=== PATIENT | female | born 1990 | race Caucasian/White ===

== ENCOUNTER 2018-05-27 16:32 | Emergency (ER) | payer OTHER ==
[2018-05-27 16:39] VITALS: BP 134/77; PULSE 90; TEMP 98.5; BMI 28.3
--- NOTE | 2018-05-27 16:54 | PDOC ---
History of Present Illness - General Chief Complaint: Pain Stated Complaint: ABDOMINAL PAIN Time Seen by Provider: 05/27/18 16:53 Past History - Past Medical History Allergies/Adverse Reactions: Allergies Allergy/AdvReac Type Severity Reaction Status Date / Time No Known Allergies Allergy Verified 05/27/18 16:39 Home Medications: Ambulatory Orders Ondansetron [Zofran -] 4 mg PO QID PRN #20 tablet 12/20/14 Anemia: No Asthma: No Cancer: No Cardiac Disorders: No CVA: No COPD: No CHF: No Dementia: No Diabetes: No GI Disorders: No Disorders: No HTN: No Hypercholesterolemia: No Liver Disease: No Seizures: No Thyroid Disease: No - Surgical History Abdominal Surgery: No Appendectomy: No Cardiac Surgery: No Cholecystectomy: No Lung Surgery: No Neurologic Surgery: No Orthopedic Surgery: No - Suicide/Smoking/Psychosocial Hx Smoking Status: Yes Smoking History: Never smoked Have you smoked in the past 12 months: Yes Number of Cigarettes Smoked Daily: 1 Hx Alcohol Use: No Drug/Substance Use Hx: No Substance Use Type: None Hx Substance Use Treatment: No *Physical Exam - Vital Signs Last Vital Signs Temp Pulse Resp BP Pulse Ox 98.5 F 90 18 134/77 99 05/27/18 16:35 05/27/18 16:35 05/27/18 16:35 05/27/18 16:35 05/27/18 16:35 *DC/Admit/Observation/Transfer - Referrals Referrals: Levy Licea [Primary Care Provider] - - Patient Instructions - Post Discharge Activity
--- NOTE | 2018-05-27 16:54 | PDOC ---
History of Present Illness - General Chief Complaint: Pain Stated Complaint: ABDOMINAL PAIN Time Seen by Provider: 05/27/18 16:53 History Source: Patient Exam Limitations: No Limitations - History of Present Illness Initial Comments: 05/27/18 16:55 27 year old woman A1 who presents with 2 days of thick vaginal discharge, dysparenia lower pelvic cramping and vulvar itching and burning after unprotected sexual intercourse with a new partner. The patient denies any fevers , nausea, vomiting, vaginal or vulvar lesions or rashes. The patient denies any burning with yurination, blood in the urine n/v/d/c. She has no other complaints at [facility] nad has not used anything for pain yet. She reports that her menses are normally very regular and came on 05/21/18 this month when it should have come on 06/02/18. LNMP: 05/21/18 Past History - Past Medical History Allergies/Adverse Reactions: Allergies Allergy/AdvReac Type Severity Reaction Status Date / Time No Known Allergies Allergy Verified 05/27/18 16:39 Home Medications: Ambulatory Orders NK [No Known Home Medication] 05/27/18 Anemia: No Asthma: No Cancer: No Cardiac Disorders: No CVA: No COPD: No CHF: No Dementia: No Diabetes: No GI Disorders: No Disorders: No HTN: No Hypercholesterolemia: No Liver Disease: No Seizures: No Thyroid Disease: No - Surgical History Abdominal Surgery: No Appendectomy: No Cardiac Surgery: No Cholecystectomy: No Lung Surgery: No Neurologic Surgery: No Orthopedic Surgery: No - Suicide/Smoking/Psychosocial Hx Smoking Status: Yes Smoking History: Never smoked Have you smoked in the past 12 months: Yes Number of Cigarettes Smoked Daily: 1 Hx Alcohol Use: No Drug/Substance Use Hx: No Substance Use Type: None Hx Substance Use Treatment: No Review of Systems - Review of Systems Able to Perform ROS?: Yes Comments:: 05/27/18 17:29 GENERAL/CONSTITUTIONAL: No fever or chills. No weakness. HEAD, EYES, EARS, NOSE AND THROAT: No change in vision. No ear pain or discharge. No sore throat. CARDIOVASCULAR: No chest pain or shortness of breath RESPIRATORY: No cough, wheezing, or hemoptysis. GASTROINTESTINAL: No nausea, vomiting, diarrhea or constipation. GENITOURINARY: No dysuria, frequency, or change in urination. MUSCULOSKELETAL: No joint or muscle swelling or pain. No neck or back pain. SKIN: No rash NEUROLOGIC: No headache, vertigo, loss of consciousness, or change in strength/ sensation. ENDOCRINE: No increased thirst. No abnormal weight change HEMATOLOGIC/LYMPHATIC: No anemia, easy bleeding, or history of blood clots. ALLERGIC/IMMUNOLOGIC: No hives or skin allergy. Is the patient limited Montserratian proficient: No *Physical Exam - Vital Signs Last Vital Signs Temp Pulse Resp BP Pulse Ox 98.5 F 90 18 134/77 99 05/27/18 16:35 05/27/18 16:35 05/27/18 16:35 05/27/18 16:35 05/27/18 16:35 - Physical Exam Comments: 05/27/18 17:27 GENERAL: Awake, alert, and fully oriented, in no acute distress HEAD: No signs of trauma, normocephalic, atraumatic EYES: EOMI, sclera anicteric, conjunctiva clear ENT: oropharynx clear without exudates. Moist mucosa NECK: Normal ROM, supple LUNGS: No distress, speaks full sentences, clear to auscultation bilaterally HEART: Regular rate and rhythm, normal S1 and S2, no murmurs, rubs or gallops, peripheral pulses normal and equal bilaterally. ABDOMEN: Soft, nontender, normoactive bowel sounds. No guarding, no rebound. No masses EXTREMITIES : Normal inspection, Normal range of motion, no edema. No clubbing or cyanosis. NEUROLOGICAL: Cranial nerves II through XII grossly intact. Normal speech, no focal sensorimotor deficits SKIN: Warm, Dry, normal turgor, no rashes or lesions noted PELVIC: thick white "cottage cheese like" vaginal discharge, no cervical motion tenderness, closed cervical os, no vulvar or vaginal lesions. Medical Decision Making - Medical Decision Making 05/27/18 17:27 27 year old woman who presents with 2 days of thick vaginal discharge, dysparenia lower pelvic cramping and vulvar itching and burning after unprotected sexual intercourse with a new partner. The patient denies any fevers , nausea, vomiting, vaginal or vulvar lesions or rashes. The patient denies any burning with yurination, blood in the urine n/v/d/c. She has no other complaints at [facility] nad has not used anything for pain yet. She reports that her menses are normally very regular and came on 05/21/18 this month when it should have come on 06/02/18. ED Course: consider yeast infection vs G/C vs Uti ua, ucx, upreg, urine GC will dose difulcan urine results unremarkable patient stable for discharge. 05/27/18 18:40 *DC/Admit/Observation/Transfer Diagnosis at time of Disposition: Candidiasis - Discharge Dispostion Disposition: HOME Condition at time of disposition: Stable Decision to Admit order: No - Referrals Referrals: Levy Licea [Primary Care Provider] - - Patient Instructions Printed Discharge Instructions: DI for Vaginal Yeast Infection Additional Instructions: You were seen in the ED for complaints of vaginal discharge and pelvic cramping. In the ED you were evaluated with labwork Your results were unremarkable and you will receive a call back with any pending labs. There does not appear to be an acute need for immediate hospitalization. You are advised to follow up with your Primary Care Physician within 1 week. Return to the ED immediately if you experience worsening pelvic pain or cramping , fevers, vulvar/vaginal rashes or lesions, nausea or vomiting. - Post Discharge Activity
[2018-05-27] MEDS ORDERED: FLUCONAZOLE 50 MG TABLET PO ONE (17:23)
[2018-05-27] MEDS ORDERED: FLUCONAZOLE 100 MG TABLET (UD) ONE (17:43)
[2018-05-27 18:22] LABS: PH,URINE 6.5 (5.0-8.0); URINE APPEARANCE CLEAR; URINE BILIRUBIN NEGATIVE (NEGATIVE); URINE COLOR YELLOW; URINE GLUCOSE (UA) NEGATIVE (NEGATIVE); URINE KETONE NEGATIVE (NEGATIVE); URINE LEUK ESTERASE NEGATIVE (NEGATIVE); URINE NITRITE NEGATIVE (NEGATIVE); URINE PROTEIN NEGATIVE (NEGATIVE); URINE UROBILINOGEN 0.2 mg/dL (0.2-1.0)
[2018-05-27 18:24] LABS: HCG,QUALITATIVE URINE Negative
--- NOTE | 2018-05-27 18:24 | PDOC ---
Documentation entered by Oliver Guerin SCRIBE, acting as scribe for Bonifacio Robin MD. Bonifacio Robin MD: This documentation has been prepared by the Truong bryan Daniel, SCRIBE, under my direction and personally reviewed by me in its entirety. I confirm that the documentation accurately reflects all work, treatment, procedures, and medical decision making performed by me. Attending Attestation - Resident Resident Name: Felicia Frey - ED Attending Attestation I have performed the following: I have examined & evaluated the patient, The case was reviewed & discussed with the resident, I agree w/resident's findings & plan, Exceptions are as noted - HPI HPI: 05/27/18 17:30 The patient is a 27 year old female with no past medical history here today for evaluation of thick vaginal discharge. The patient reports that she began to have vaginal discharge, dyspareunia, lower pelvic cramping, and vulvar itching and burning 2 days ago. She reports that she began having unprotected sex with a new partner recently. Patient denies headache, lightheadedness. Denies fever, chills. Denies chest pain, shortness of breath. Denies nausea, vomiting, diarrhea, abdominal pain. Denies urinary symptoms. Denies vaginal or vulvar lesions or rashes. Allergies: NKA PCP: Levy Licea LNMP: 05/21/18 - Physicial Exam PE: 05/27/18 17:42 GENERAL: Awake, alert, and fully oriented, in no acute distress HEAD: No signs of trauma EYES: PERRLA, EOMI, sclera anicteric, conjunctiva clear ENT: Auricles normal inspection, hearing grossly normal, nares patent. Moist mucosa NECK: Normal ROM, supple, no lymphadenopathy, JVD, or masses ABDOMEN: Soft, nontender. No guarding, no rebound. No masses EXTREMITIES: Normal range of motion, no edema. No clubbing or cyanosis. 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 No CMT. no adnexal tenderness or masses. NEUROLOGICAL: Cranial nerves II through XII grossly intact. Normal speech, normal gait SKIN: Warm, Dry, normal turgor, no rashes or lesions noted. - Medical Decision Making 05/27/18 17:35 A portion of this note was written by my scribe, under my supervision. Vital Signs Temp Pulse Resp BP Pulse Ox 98.5 F 90 18 134/77 99 05/27/18 16:35 05/27/18 16:35 05/27/18 16:35 05/27/18 16:35 05/27/18 16:35 27 year old female c/ no PMH p/w vaginal discharge since yesterday. The patient reported new sexual partner 2 days ago. Unprotected sex. Noticed yesterday, whitish cottage cheese discharge, vaginal itching, and mild dysuria. No abdominal pain, fevers, chills. Pelvic exam demonstrates yeast infection. Will give diflucan. Will send GC/CT, though low suspicion. UA/UC. If UA positive, treat with abx. Follow up with PMD
== END 2018-05-27 18:54 | disposition home or self-care (01) ==
LOC: JER 16:32
DX: B37.3 Candidiasis of vulva and vagina (principal)
CPT/HCPCS: 36415; 81003; 84703; 87086; 87491; 87591; 99282-25

== ENCOUNTER 2018-07-24 19:32 | Emergency (ER) | payer OTHER ==
[2018-07-24 19:59] VITALS: BMI 27.4
[2018-07-24] MEDS ORDERED: ACETAMINOPHEN 500 MG TABLET (FP) PO ONE (19:59)
--- NOTE | 2018-07-24 19:59 | PDOC ---
Rapid Medical Evaluation Time Seen by Provider: 07/24/18 19:55 Medical Evaluation: Allergies Allergy/AdvReac Type Severity Reaction Status Date / Time No Known Allergies Allergy Verified 05/27/18 16:39 07/24/18 19:56 This patient had brief in-person evaluation in triage cc: chills and shaking this afternoon abdominal pain and constipation with no nausea, vomiting or diarrhea. PE: NAD unlabored breathing +bowel sounds, non tender abdomen orders: antipyretic This patient will proceed to the Ed for further evaluation
[2018-07-24] MEDS ORDERED: ACETAMINOPHEN 325 MG TABLET (FP) ONE (20:05)
[2018-07-24] MEDS ORDERED: SODIUM CHLORIDE 2,177 ML IV ONE (20:28)
--- NOTE | 2018-07-24 20:28 | PDOC ---
History of Present Illness - General Chief Complaint: Respiratory Stated Complaint: CHILLS/ABDOMINAL PAIN Time Seen by Provider: 07/24/18 19:55 History Source: Patient Exam Limitations: No Limitations - History of Present Illness Initial Comments: 27 yo F w a hx of a recent UTI presents to the ER with dysuria, frequency, urgency, suprapubic tenderness, and flank pain. The patient states she was recently diagnosed with a UTI and given medications to treat it but she stopped taking the antibiotics early and thinks that her urinary symptoms never subsided. She said last time she was diagnosed with a UTI she only had the urinary symptoms but now she has right sided flank pain, fevers, and the chills. LMP: 07/02 PCP: Levy Licea PSH: right wrist surgery Social Hx: Drinks recreationally on weekends. Denies smoking, or other substance usage. Allergies: NKA, NKDA Past History - Past Medical History Allergies/Adverse Reactions: Allergies Allergy/AdvReac Type Severity Reaction Status Date / Time No Known Allergies Allergy Verified 05/27/18 16:39 Home Medications: Ambulatory Orders levoFLOXacin [Levaquin] 750 mg PO DAILY 7 Days #7 tab 07/24/18 Anemia: No Asthma: No Cancer: No Cardiac Disorders: No CVA: No COPD: No CHF: No Dementia: No Diabetes: No GI Disorders: No Disorders: No HTN: No Hypercholesterolemia: No Liver Disease: No Seizures: No Thyroid Disease: No - Surgical History Abdominal Surgery: No Appendectomy: No Cardiac Surgery: No Cholecystectomy: No Lung Surgery: No Neurologic Surgery: No Orthopedic Surgery: No - Suicide/Smoking/Psychosocial Hx Smoking Status: Yes Smoking History: Never smoked Have you smoked in the past 12 months: No Number of Cigarettes Smoked Daily: 1 Information on smoking cessation initiated: No Hx Alcohol Use: No Drug/Substance Use Hx: No Substance Use Type: None Hx Substance Use Treatment: No Review of Systems - Review of Systems Able to Perform ROS?: Yes Comments:: CONSTITUTIONAL: + fever, + chills, + fatigue EYES: No visual changes ENT: No ear pain, no sore throat CARDIOVASCULAR: No chest pain, no palpitations RESPIRATORY: No cough, no SOB GI: + Flank pain, No abdominal pain, no nausea, no vomiting, no constipation, no diarrhea GENITOURINARY: + dysuria, + frequency, + hematuria MUSKULOSKELETAL: + backpain, no joint pain, no myalgias SKIN: No rash NEURO: No headache *Physical Exam - Vital Signs Last Vital Signs Temp Pulse Resp BP Pulse Ox 103.0 F H 121 H 18 132/83 100 07/24/18 19:57 07/24/18 19:57 07/24/18 19:57 07/24/18 19:57 07/24/18 19:57 - Physical Exam Comments: CONSTITUTIONAL: Well-appearing; well-nourished; in no apparent distress HEAD: Normocephalic; atraumatic EYES: PERRL; EOM intact ENMT: External appears normal; normal oropharynx NECK: Supple; non-tender; no cervical lymphadenopathy CARD: Normal S1, S2; no murmurs, rubs, or gallops RESP: CTAB. No wheezes, rhonchi, or rales ABD: There is suprapubic TTP. Abdomen is soft, non-distended. no palpable organomegaly, no palpable hernias. Normal bowel sounds. EXT: Normal ROM in all four extremities; non-tender to palpation; distal pulses intact SKIN: Warm, dry, no rash NEURO: No focal neurological deficiencies. ED Treatment Course - LABORATORY CBC & Chemistry Diagram: 07/24/18 20:47 07/24/18 20:47 - Medications Given in the ED: ED Medications Discontinued Medications Generic Name Dose Route Start Last Admin Trade Name Freq PRN Reason Stop Dose Admin Acetaminophen 1,000 mg 07/24/18 19:59 07/24/18 20:08 Tylenol - PO 07/24/18 20:00 1,000 mg ONCE ONE Administration Medical Decision Making - Medical Decision Making 27 yo F w a hx of a recent UTI presents to the ER with dysuria, frequency, urgency, suprapubic tenderness, and flank pain. The patient states she was recently diagnosed with a UTI and given medications to treat it but she stopped taking the antibiotics early and thinks that her urinary symptoms never subsided. She said last time she was diagnosed with a UTI she only had the urinary symptoms but now she has right sided flank pain, fevers, and the chills. LMP: 07/02 Vital Signs Temp Pulse Resp BP Pulse Ox 103.0 F H 121 H 18 132/83 100 07/24/18 19:57 07/24/18 19:57 07/24/18 19:57 07/24/18 19:57 07/24/18 19:57 DDx IBNLT: SIRS vs Sepsis - Likely a UTI which progressed to PYLO. Lower on DD - bacteremia, PNA, meningitis, gastroenteritis Plan: Sepsis workup, labs, urine, fluids, ekg, xr, urine, cultures, Abx, re- assess. Urine shows patient has a UTI - likely pylo Will treat w Abx one dose ceftriaxone here then DC on levaquin *DC/Admit/Observation/Transfer Diagnosis at time of Disposition: UTI (lower urinary tract infection), Pyelonephritis - Discharge Dispostion Disposition: HOME Condition at time of disposition: Improved Decision to Admit order: No - Prescriptions Prescriptions: levoFLOXacin [Levaquin] 750 mg PO DAILY 7 Days #7 tab - Referrals Referrals: Levy Licea [Primary Care Provider] - - Patient Instructions Printed Discharge Instructions: Kidney Infection Additional Instructions: You came into the ER and we diagnosed you with pyelonephritis - Please see attached handout for further explanation. 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 Please make sure to pick them up and take one 750 mg pill a day for the next 7 days. We will call you when your urine culture results come back if we need to treat you with other antibiotics. Come back to the ER immediately if your pain worsens, you start vomiting or have any other new or worsening concerns. Please make sure to follow up with your PCP in the next 3 to 5 days to make sure you are getting better and being taken care of. Thank you for coming to the [facility] ER. We hope you feel better soon! Print Language: NOR[place] KOREAN - Post Discharge Activity
[2018-07-24 21:22] LABS: BASO % 0.1 % (0-2.0); EOS % 0.2 % (0-4.5); HEMATOCRIT 34.8 % (32.4-45.2); HEMOGLOBIN 11.1 GM/dL (10.7-15.3); LYMPH % 3.3 % (8-40); MCH 24.9 pg (25.7-33.7); MCHC 31.8 g/dl (32.0-36.0); MEAN CELL VOLUME 78.3 fl (80-96); MONO % 5.5 % (3.8-10.2); NEUT % 90.9 % (42.8-82.8); PLATELET COUNT 323 K/MM3 (134-434); RBC 4.44 M/mm3 (3.60-5.2); RDW 17.5 % (11.6-15.6); WHITE BLOOD COUNT 18.6 K/mm3 (4.0-10.0)
[2018-07-24 21:35] LABS: INR 0.93 (0.83-1.09)
[2018-07-24 21:38] LABS: ALBUMIN 3.8 g/dl (3.4-5.0); BILIRUBIN,TOTAL 0.6 mg/dL (0.2-1); BLOOD UREA NITROGEN 14.1 mg/dL (7-18); CALCIUM 9.1 mg/dL (8.5-10.1); CREATININE 0.7 mg/dL (0.55-1.3); POTASSIUM 4.1 mmol/L (3.5-5.1); TOT PROT 7.2 g/dl (6.4-8.2)
[2018-07-24 21:51] LABS: EPI CELLS 1.5 /HPF (0-5/HPF); HYALINE CASTS 5 /lpf (0-8); PH,URINE 6.5 (5.0-8.0); URINE APPEARANCE CLEAR; URINE BILIRUBIN NEGATIVE (NEGATIVE); URINE COLOR YELLOW; URINE GLUCOSE (UA) NEGATIVE (NEGATIVE); URINE KETONE NEGATIVE (NEGATIVE); URINE LEUK ESTERASE 2+ (NEGATIVE); URINE NITRITE NEGATIVE (NEGATIVE); URINE PROTEIN NEGATIVE (NEGATIVE); URINE RBC 6 /hpf (0-4); URINE UROBILINOGEN 0.2 mg/dL (0.2-1.0); URINE WBC 78 /hpf (0-5)
[2018-07-24] MEDS ORDERED: CEFTRIAXONE 1,000 MG in DEXTROSE 5%-WATER - 50 ML IVPB ONE (22:16)
[2018-07-24] MEDS ORDERED: CEFTRIAXONE 1 GM/50 ML BAG ONE (22:18)
--- NOTE | 2018-07-24 22:23 | PDOC ---
Documentation entered by Andreina Frias SCRIBE, acting as scribe for Marlyn Francois DO. Marlyn Francois DO: This documentation has been prepared by the Altagracia bryan Brenda, SCRIBE, under my direction and personally reviewed by me in its entirety. I confirm that the documentation accurately reflects all work , treatment, procedures, and medical decision making performed by me. Attending Attestation - Resident Resident Name: Valdemar Matos - ED Attending Attestation I have performed the following: I have examined & evaluated the patient, The case was reviewed & discussed with the resident, I agree w/resident's findings & plan - HPI HPI: 07/24/18 21:55 The patient is a 27 year old female, with a significant PMH of UTIs who presents to the emergency department with dysuria, frequency, urgency, superpubic tenderness, and flank pain. Patient notes last time she was diagnosed with a UTI she only had the urinary symptoms, however this time she is experiencing right sided flank pain, fever along with chills. LMP was July 02. The patient denies chest pain, shortness of breath, headache and dizziness. Denies nausea, vomiting, diarrhea and constipation. Allergies: NKA Past surgical history: right wrist surgery Social history: Drinks socially on weekends. No tobacco use. No substance/drug use. PCP: Dr. Maira Licea 07/24/18 22:22 - Physicial Exam PE: 07/24/18 20:52 Agree with resident's exam. - Medical Decision Making 07/24/18 22:22 27-year-old female with dysuria fever and back pain Exam and evaluation consistent with likely pyelonephritis Patient has no elevated lactic acid level and is well-appearing She will receive IV fluids, antibiotics with 48 hour culture follow-up to ensure susceptibility Patient agrees with the plan and understands that she may receive a call shortly to change her medications
[2018-07-24 22:30] VITALS: BP 116/70; PULSE 84; TEMP 98.9
--- NOTE | 2018-07-25 10:34 | EKG ---
Test Reason : Blood Pressure : / mmHG Vent. Rate : 087 BPM Atrial Rate : 087 BPM P-R Int : 148 ms QRS Dur : 072 ms QT Int : 344 ms P-R-T Axes : 048 059 037 degrees QTc Int : 413 ms NORMAL SINUS RHYTHM NONSPECIFIC T WAVE ABNORMALITY ABNORMAL ECG Confirmed by MD JU, ZANA ([id number]) on 07/25/2018 10:33:55 AM Referred By: Confirmed By:ZANA DODD MD
== END 2018-07-24 23:09 | disposition home or self-care (01) ==
LOC: JER 19:32
PROC: 3E0337Z Introduction of Electrolytic and Water Balance Substance into Peripheral Vein, Percutaneous Approach (ICD-10-PCS; principal; 2018-07-24)
PROC: 3E03329 Introduction of Other Anti-infective into Peripheral Vein, Percutaneous Approach (ICD-10-PCS; 2018-07-24)
DX: N12 Tubulo-interstitial nephritis, not specified as acute or chronic (principal); N39.0 Urinary tract infection, site not specified
CPT/HCPCS: 36415; 71045-TC-FY; 80053; 81003; 83605; 84484; 84703; 85025; 85610; 87040; 87086; 93005; 93010; 96361; 96365; 99283-25; J7030

== ENCOUNTER 2022-01-05 09:46 | Emergency (ER) | payer OTHER ==
[2022-01-05 10:07] VITALS: BP 135/84; PULSE 106; RESP 20; TEMP 102.6; BMI 26.9
[2022-01-05] MEDS ORDERED: IBUPROFEN 600 MG TABLET (FP) PO ONE (10:26)
== END 2022-01-05 13:24 | disposition home or self-care (01) ==
LOC: JER 09:46
DX: J09.X2 Influenza due to identified novel influenza A virus with other respiratory manifestations (principal)
CPT/HCPCS: 0241U-QW; 71046-TC-FY; 99284-25

== ENCOUNTER 2023-07-05 04:06 | Day surgery (SDC) | payer OTHER ==
[2023-07-05 06:34] VITALS: BMI 32.4
[2023-07-05] MEDS ORDERED: LIDOCAINE HCL 2% 100 MG/5 ML DISP.SYRIN ONE (07:19)
[2023-07-05] MEDS ORDERED: MIDAZOLAM HCL 2 MG/2 ML SINGLE DOSE VIAL ONE (07:19)
[2023-07-05] MEDS ORDERED: ONDANSETRON 4 MG/2 ML VIAL ONE ×2 (07:19→10:39)
[2023-07-05] MEDS ORDERED: PROPOFOL 40 ML ONE (07:19)
[2023-07-05] MEDS ORDERED: FENTANYL CITRATE/PF 50 MCG/ML VIAL ONE ×3 (07:19→08:53)
[2023-07-05] MEDS ORDERED: KETOROLAC TROMETHAMINE 30 MG/1 ML VIAL ONE (07:19)
[2023-07-05] MEDS ORDERED: DEXAMETHASONE SOD PHOSPHATE 4 MG/1 ML VIAL ONE (07:19)
[2023-07-05] MEDS ORDERED: IBUPROFEN 600 MG TABLET (FP) PO PRN (07:43)
[2023-07-05] MEDS ORDERED: oxyCODONE HCL 5 MG TABLET PO PRN ×2 (07:43→08:32)
[2023-07-05] MEDS ORDERED: IBUPROFEN 800 MG/8 ML IJ IVPB PRN (07:43)
[2023-07-05] MEDS ORDERED: ELECTROLYTE-148 SOLN 1,000 ML IV SCH (07:45)
[2023-07-05] MEDS ORDERED: ONDANSETRON 4 MG/2 ML VIAL IVPUSH PRN (08:32)
[2023-07-05] MEDS ORDERED: LACTATED RINGERS SOLUTION 1,000 ML IV SCH (08:45)
[2023-07-05 10:01] VITALS: RESP 16
[2023-07-05 10:50] VITALS: BP 141/86; PULSE 60; TEMP 97.7
[2023-07-05] MEDS: ONDANSETRON 4 MG/2 ML VIAL IVPUSH PRN (10:57)
== END 2023-07-05 11:27 | disposition home or self-care (01) ==
LOC: JASU-SURG 04:06
PROVIDERS: ATTEND Obstetrics & Gynecology
PROC: 0UDB8ZX Extraction of Endometrium, Via Natural or Artificial Opening Endoscopic, Diagnostic (ICD-10-PCS; principal; 2023-07-05 07:30)
DX: N93.9 Abnormal uterine and vaginal bleeding, unspecified (principal)
CPT/HCPCS: 81025; 88305-TC; 94760

== ENCOUNTER 2024-11-22 12:46 | Day surgery (SDC) | payer OTHER ==
[2024-11-22] MEDS ORDERED: HYDROCORTISONE SOD SUCCINATE 100 MG/2 ML VIAL IVPUSH PRN (13:03)
[2024-11-22] MEDS: IRON SUCROSE INJECTION 200 MG in SODIUM CHLORIDE 100 ML IVPB ONE (13:09)
[2024-11-22 14:24] VITALS: BP 125/85; PULSE 86; RESP 18; TEMP 98.3
== END 2024-11-22 14:27 | disposition home or self-care (01) ==
LOC: FINFUSION 12:46 → FM/S 12:47 → FINFUSION 14:27
PROVIDERS: ATTEND Family Medicine
PROC: 3E033GC Introduction of Other Therapeutic Substance into Peripheral Vein, Percutaneous Approach (ICD-10-PCS; principal; 2024-11-22)
DX: D50.9 Iron deficiency anemia, unspecified (principal)
CPT/HCPCS: 96365; J1756